=== PATIENT | female | born 1940 | race Caucasian/White ===

== ENCOUNTER 2024-10-04 20:16 | Observation (INO) ==
[2024-10-04 21:32] LABS: Basophils # (auto) 0.03 K/uL (0.00-0.20); Basophils % (auto) 0.8 %; Eosinophils # (auto) 0.38 K/uL (0.00-0.50); Eosinophils % (auto) 10.1 %; Hematocrit (blood only) 41.3 % (37.0-47.0); Hemoglobin 14.8 g/dl (12.0-16.0); Immature Granulocytes # (auto) 0.01 K/uL (0.01-0.20); Immature Granulocytes % (auto) 0.3 %; Lymphocytes # (auto) 1.04 K/uL (1.20-3.40); Lymphocytes % (auto) 27.6 %; Mean Corpuscular Hemoglobin 31.4 pg (25.0-34.0); Mean Corpuscular Hgb Conc 35.8 g/dL (32.0-36.0); Mean Corpuscular Volume 87.7 fL (80.0-100.0); Mean Platelet Volume 9.9 fL (9.4-12.4); Monocytes # (auto) 0.43 K/uL (0.11-0.59); Monocytes % (auto) 11.4 %; Neutrophils # (auto) 1.88 K/uL (1.40-6.50); Neutrophils % (auto) 49.8 %; Platelet Count 198 K/uL (130-400); RDW Coefficient of Variation 11.2 % (11.5-14.5); RDW Standard Deviation 36.2 fL (36.4-46.3); Red Blood Count 4.71 M/uL (4.20-5.40); White Blood Count 3.77 K/ul (4.8-10.8)
[2024-10-04 21:40] LABS: Albumin Globulin Ratio 1.2 (0.9-2); Albumin Level 3.8 gm/dl (3.4-5.0); Bilirubin,Total 0.5 mg/dl (0.2-1.0); Calcium 8.4 mg/dl (8.6-10.3); Globulin 3.1 gm/dl (2.5-4.0); Potassium 3.7 mmol/L (3.5-5.1); Total Protein 6.9 gm/dl (6.0-8.3)
[2024-10-04 21:45] LABS: Troponin I High Sensitivity 18.9 pg/ml (0-14)
[2024-10-04 21:52] LABS: Partial Thromboplastin Time 28 Seconds (21-31); Prothrombin Time 10.8 Seconds (9.0-12.0)
--- NOTE | 2024-10-04 22:15 | Emergency Department Note ---
Impression & Plan Influenza A (H1N1), Febrile illness, acute, Acute hyponatremia ED Provider Note NAME: BHAVIK MULLINS AGE: 83 SEX: Female INFORMANT: Patient ED PROVIDER(S): Enrike Kellogg MD CHIEF COMPLAINT: Shortness of breath and flulike symptoms PLAN: Disposition: Admission Outpatient prescription management: none Referral: None MEDICAL DECISION MAKING: Patient presented because of flulike symptoms. Testing was performed. No pneumothorax or pneumonia seen. She was congested and treated with a DuoNeb. Patient was also given Tylenol due to her complaints of aches. Laboratory testing did reveal mild leukopenia. Patient also had a borderline troponin and was hyponatremic. Patient appeared clinically dry and was started on low-dose fluids. She was also given Tamiflu. Further evaluation and management in the hospital was deemed appropriate. Consultation was made with Dr. Girard of the [facility] service. Patient was evaluated in the ER for further management. Care/management discussed with: operations manager station Level of care consideration(s): After review of the information above and other included data, I feel the patient requires escalation of care to admission Triage Nursing notes: reviewed and agree them. Vital Signs: reviewed and remarkable for no significant abnormalities Additional History obtained from: Patient's family regarding this current illness history. Chronic Medical/Social Conditions affecting care: Hypertension Prior/ Outside/ External records reviewed: none Differential Diagnosis: Reactive airway disease, pneumonia, pneumothorax, COPD, CHF, infections, cardiac ischemia, pulmonary embolism, musculoskeletal, gastrointestinal, as well as other pathologies. Viral syndrome, Diagnostics, independently interpreted by me: ECG: Twelve-lead ECG reveals a normal sinus rhythm at 68 bpm. Septal Q wave. No ST elevation or depression. Cardiac Monitoring: Cardiac monitoring ordered by me: The patient was placed on continuous cardiac monitoring and observed. It revealed a normal sinus rhythm at beats per minute without ectopy or evidence of dysrhythmia. Medical decision rules: none Imaging studies: Chest x-ray. Findings: A chest x-ray was performed and revealed no pneumothorax, effusion, infiltrate, pulmonary edema, free air under the diaphragm, or wide mediastinum. Impression: No acute disease. HPI: 83 year old Female arrives for evaluation of flu like symptoms. This started 1-2 weeks ago and is worsening. The patient also notes the following associated symptoms, weakness, malaise, nausea, vomiting, fatigue, urinary frequency. The patient has found no relieving factors. Current pain is rated as 5/10. Pt denies LOC, headache, visual changes, neck pain, chest pain, breathing difficulties, abdominal pain, back pain, melena, hematochezia, numbness, lymphadenopathy, rash, or other complaints. PAST MEDICAL HISTORY: See Below, HTN PAST SURGICAL HISTORY: See Below, SOCIAL HISTORY: See Below, non-smoker HOME MEDICATIONS: See Below ALLERGIES: See Below VITALS: See Below PHYSICAL EXAMINATION: GENERAL: Awake, alert, ill-appearing, in no distress HENT: Normocephalic, atraumatic. Oropharynx unremarkable. EYES: Normal conjunctiva. Sclera non-icteric. NECK: Inspection normal. Non-tender. Supple. No nuchal rigidity. FROM. No masses. RESPIRATORY: Clear to auscultation. No wheezes. No rales. Normal respiratory effort. CARDIAC: Normal rate. Normal rhythm. No murmurs. No rubs. Extremities warm and well perfused. Pulses equal. No JVD. GI: Soft, non-distended. No tenderness to palpation. No rebound or guarding. No masses. RECTAL: Deferred. MUSCULOSKELETAL: Atraumatic. Chest examination reveals no tenderness. The back is symmetrical on inspection without obvious abnormality. There is no CVA tenderness to palpation. No joint edema. LOWER EXTREMITIES: Calves are equal size bilaterally and non-tender. No edema. No discoloration. NEURO: Normal sensorium. No sensory or motor deficits noted. SKIN: No rash or jaundice noted. PROCEDURES: none CRITICAL CARE: none OBSERVATION NOTE: none Past Med/Surg History Problem List (Updated 10/05/24 @ 01:27 by Enrike Kellogg MD) Febrile illness, acute (Acute) Influenza A (H1N1) (Acute) Influenza A Acute hyponatremia (Acute) HTN (hypertension) (Acute) Medical History Overactive bladder Hx of lymphoma dx 2010, bx of lump on shoulder, hx "did detox diet to clear my system, no other treatment" History of hypertension recently put on medication Heart murmur History of cellulitis bilateral lower legs, reason for current abx; seen in [place] ER 02/2024 and at primary care 04/04/24 Surgical History Hx of right cataract extraction Hx of colonoscopy Family History Father Myocardial infarction Sister Ovarian cancer Mother Hypertension Denies family history of Prostate cancer Breast cancer Colorectal cancer Social History Smoking Status: Never smoker Second Hand Exposure: No; Do You Dip or Chew Tobacco: No; Hx Alcohol Use: Yes (years ago) Hx Substance Use: No Preferred Language: Tristanian Communication Ability: Effective Visual Impairment: No Limitations Hearing Ability: Normal Fire Protection Inspector Required: No Beliefs That Will Affect Care: None marital status: Current Living Situation: Family current occupational status: retired Feels Safe at Home: Yes Childhood Exposure to Second-Hand Smoke: No Diet: vegetarian Dental Care, Regularly: Yes Physical Activity Frequency: 3-4 Times per Week Seatbelt Use: sometimes Sunscreen Use: No Assistive Devices: None Allergies Allergies Allergy/AdvReac Type Severity Reaction Status Date / Time No Known Allergies Allergy Verified 10/02/24 17:08 Home Meds Home Medications Medication Instructions Recorded Confirmed losartan 25 mg tablet 25 mg PO QAM 10/02/24 10/04/24 Previous Rx's Medication Instructions Recorded azithromycin 250 mg tablet See Rx Instructions PO .COMPLEX #6 10/02/24 tabs Results & Data (ED) Vital Signs Vital Signs - 24 hr 10/04/24 20:20 10/04/24 21:38 10/04/24 21:38 Temperature 36.6 C 36.7 C Temperature Source Temporal Artery Scan Oral Pulse Rate 68 Pulse Rate [Apical] 59 L Pulse Rhythm Pulse Rhythm [Apical] Regular Pulse Strength [Apical] Normal Respiratory Rate 16 26 H Respiratory Effort / Characteristics Non-Labored Spontaneous Respiratory Depth Normal Respiratory Pattern Regular Blood Pressure 157/82 H Blood Pressure [Right Arm] 184/87 H Blood Pressure Mean 107 Blood Pressure Mean [Right Arm] 119 Blood Pressure Position [Right Arm] Lying Pulse Oximetry 96 96 Oxygen Delivery Method Room Air Room Air Room Air Sepsis Recent Fever Within 48 Hours No Sepsis New/Unexplained Change in Mental Status No Sepsis Action Taken by Nursing No Action Required 10/04/24 21:38 10/04/24 22:18 10/04/24 23:00 Temperature Temperature Source Pulse Rate 59 L 62 Pulse Rate [Apical] 67 Pulse Rhythm Regular Pulse Rhythm [Apical] Pulse Strength [Apical] Respiratory Rate 24 18 Respiratory Effort / Characteristics Non-Labored Spontaneous Respiratory Depth Normal Respiratory Pattern Regular Blood Pressure Blood Pressure [Right Arm] 146/84 H Blood Pressure Mean Blood Pressure Mean [Right Arm] 104 Blood Pressure Position [Right Arm] Pulse Oximetry 97 94 Oxygen Delivery Method Room Air Room Air Sepsis Recent Fever Within 48 Hours Sepsis New/Unexplained Change in Mental Status Sepsis Action Taken by Nursing Laboratory Data 10/04/24 21:03 10/04/24 21:03 Lab Results 10/04/24 10/04/24 10/04/24 Range/Units 21:03 22:19 22:23 WBC 3.77 L (4.8-10.8) K/ul RBC 4.71 (4.20-5.40) M/uL Hgb 14.8 (12.0-16.0) g/dl Hct 41.3 (37.0-47.0) % MCV 87.7 (80.0-100.0) fL MCH 31.4 (25.0-34.0) pg MCHC 35.8 (32.0-36.0) g/dL RDW Std Deviation 36.2 L (36.4-46.3) fL RDW Coeff of Brien 11.2 L (11.5-14.5) % Plt Count 198 (130-400) K/uL MPV 9.9 (9.4-12.4) fL Immature Gran % (Auto) 0.3 % Neut % (Auto) 49.8 % Lymph % (Auto) 27.6 % [place] % (Auto) 11.4 % Eos % (Auto) 10.1 % Baso % (Auto) 0.8 % Neut # (Auto) 1.88 (1.40-6.50) K/uL Lymph # (Auto) 1.04 L (1.20-3.40) K/uL [place] # (Auto) 0.43 (0.11-0.59) K/uL Eos # (Auto) 0.38 (0.00-0.50) K/uL Baso # (Auto) 0.03 (0.00-0.20) K/uL Immature Gran # (Auto) 0.01 (0.01-0.20) K/uL PT 10.8 (9.0-12.0) Seconds INR 1.0 (0.9-1.1) APTT 28 (21-31) Seconds PTT Ratio 1.0 Sodium 125 L (136-145) mmol/L Potassium 3.7 (3.5-5.1) mmol/L Chloride 92 L (98-107) mmol/L Carbon Dioxide 25 (21-32) mmol/L Anion Gap 8 (3-11) BUN 17 (6-23) mg/dl Creatinine 0.68 (0.6-1.2) mg/dl Est Cr Clr Drug Dosing 61.0 ml/min eGFR 87.44 BUN/Creatinine Ratio 25.0 H (10-20) Glucose 100 H (70-99(Fasting)) mg/dl Calcium 8.4 L (8.6-10.3) mg/dl Magnesium 1.7 (1.7-2.4) mg/dl Total Bilirubin 0.5 (0.2-1.0) mg/dl AST 51 H (13-39) U/L ALT 26 (7-52) U/L Alkaline Phosphatase 68 (34-104) U/L Troponin I High Sens 18.9 H (0-14) pg/ml B-Natriuretic Peptide 85 (0-100) pg/ml Total Protein 6.9 (6.0-8.3) gm/dl Albumin 3.8 (3.4-5.0) gm/dl Globulin 3.1 (2.5-4.0) gm/dl Albumin/Globulin Ratio 1.2 (0.9-2) Nasal Influ A H1 2008 PCR DETECTED A (NotDetected) Adenovirus (PCR) Not Detected (NotDetected) B. pertussis DNA (PCR) Not Detected (NotDetected) B.parapertussis DNA PCR Not Detected (NotDetected) C. pneumoniae DNA (PCR) Not Detected (NotDetected) Coronavirus OC43 (PCR) Not Detected (NotDetected) Coronavirus HKU1 (PCR) Not Detected (NotDetected) Coronavirus 229E (PCR) Not Detected (NotDetected) SARS-CoV-2 (PCR) Not Detected (NotDetected) Coronavirus NL63 (PCR) Not Detected (NotDetected) Human Metapneumovir PCR Not Detected (NotDetected) Influenza Type B (PCR) Not Detected (NotDetected) M. pneumoniae (PCR) Not Detected (NotDetected) Parainfluenza 1 (PCR) Not Detected (NotDetected) Parainfluenza 2 (PCR) Not Detected (NotDetected) Parainfluenza 3 (PCR) Not Detected (NotDetected) Parainfluenza 4 (PCR) Not Detected (NotDetected) RSV (PCR) Not Detected (NotDetected) Entero/Rhino (PCR) Not Detected (NotDetected) Administered Medications Sodium Chloride (Nss) 1,000 mls @ 80 mls/hr IV .[id number] DASHA Stop: 10/05/24 22:29 Last Admin: 10/04/24 22:38 Dose: 80 mls/hr Documented By: LUCIANO Discontinued Medications Acetaminophen (Acetaminophen 500 Mg Tab) 1,000 mg PO NOW STA Stop: 10/04/24 22:24 Last Admin: 10/04/24 22:37 Dose: 1,000 mg Documented By: LUCIANO Albuterol (Albut/Ipratrop 3mg/0.5mg Neb 3 Ml Vial) 3 ml NEB NOW STA; Protocol Stop: 10/04/24 22:24 Last Admin: 10/04/24 22:41 Dose: 3 ml Documented By: LUCIANO Oseltamivir Phosphate (Oseltamivir Phosphate 75 Mg Cap) 75 mg PO NOW STA; Protocol Stop: 10/04/24 23:22 Last Admin: 10/04/24 23:47 Dose: 75 mg Documented By: MATEO Imaging Data Radiologist's Impression: Chest X-Ray 10/04/24 20:26 Exam(s): XR CXR 1 VIEW EXAM: XR Chest, 1 View CLINICAL HISTORY: Chest pain, nonspecific. TECHNIQUE: Frontal view of the chest. COMPARISON: Portable chest single view 03/24/2024 FINDINGS: Lungs: Minimal linear changes in the left infrahilar region in the right lung base. No focal airspace consolidation. The pulmonary vasculature is unremarkable. Pleural space: Unremarkable. No pneumothorax. No large pleural effusion. Heart: Unremarkable. No cardiomegaly. Mediastinum: The mediastinal contours are stable. The trachea is midline. Bones/joints: Unremarkable. No acute fracture. Vasculature: Similar tortuosity of the descending aorta. IMPRESSION: Minimal presumed atelectatic linear changes in the left infrahilar region in the right lung base. No focal airspace consolidation. No pleural effusion or pneumothorax. Electronically signed by: Joao Birch MD 10/04/24 22:39 PM Discharge Plan Visit Data Chief Complaint: Shortness of Breath/Dyspnea Stated Complaint: COUGH, WHEEZING, WHOLE BODY ACHE, SOB ED Provider: Enrike Kellogg Discharge Problem: Influenza A (H1N1), Febrile illness, acute, Acute hyponatremia Discharge Instructions Interventions: ED Discharge Assessment Last Done: 10/05/24 00:33 Forms Stand Alone Forms: My [facility] [address] Prescriptions Prescriptions: No Action losartan 25 mg tablet 25 mg PO QAM azithromycin 250 mg tablet See Rx Instructions PO .COMPLEX Qty: 6 0RF Rx Instructions: For 250 mg dose pack: take 500 mg today (day 1), then 250 mg for 4 days (days 2-5) PO Referrals Referrals: PCP,NO [Primary Care Provider] -
[2024-10-04 22:16] LABS: Magnesium 1.7 mg/dl (1.7-2.4)
[2024-10-04] MEDS: ACETAMINOPHEN 500 MG TAB PO STA (22:37)
[2024-10-04] MEDS: SODIUM CHLORIDE 0.9% 1,000 ML IV SCH (22:38)
--- NOTE | 2024-10-04 22:40 | XRay Report ---
Exam(s): XR CXR 1 VIEW EXAM: XR Chest, 1 View CLINICAL HISTORY: Chest pain, nonspecific. TECHNIQUE: Frontal view of the chest. COMPARISON: Portable chest single view 03/24/2024 FINDINGS: Lungs: Minimal linear changes in the left infrahilar region in the right lung base. No focal airspace consolidation. The pulmonary vasculature is unremarkable. Pleural space: Unremarkable. No pneumothorax. No large pleural effusion. Heart: Unremarkable. No cardiomegaly. Mediastinum: The mediastinal contours are stable. The trachea is midline. Bones/joints: Unremarkable. No acute fracture. Vasculature: Similar tortuosity of the descending aorta. IMPRESSION: Minimal presumed atelectatic linear changes in the left infrahilar region in the right lung base. No focal airspace consolidation. No pleural effusion or pneumothorax. Electronically signed by: Joao Birch MD 10/04/24 22:39 PM
[2024-10-04] MEDS: ALBUT/IPRATROP 3MG/0.5MG NEB 3 ML VIAL NEB STA (22:41)
[2024-10-04 23:18] LABS: Adenovirus PCR Not Detected (NotDetected); Bordetella parapertussis PCR Not Detected (NotDetected); Bordetella pertussis PCR Not Detected (NotDetected); Chlamydia pneumoniae PCR Not Detected (NotDetected); Coronavirus 229E PCR Not Detected (NotDetected); Coronavirus CoV-2 (COVID19)PCR Not Detected (NotDetected); Coronavirus HKU1 PCR Not Detected (NotDetected); Coronavirus NL63 PCR Not Detected (NotDetected); Coronavirus OC43PCR Not Detected (NotDetected); Human Metapneumovirus PCR Not Detected (NotDetected); Influenza A (H1 2009) PCR DETECTED (NotDetected); Influenza B PCR Not Detected (NotDetected); Mycoplasma pneumoniae PCR Not Detected (NotDetected); Parainfluenza Virus 1 PCR Not Detected (NotDetected); Parainfluenza Virus 2 PCR Not Detected (NotDetected); Parainfluenza Virus 3 PCR Not Detected (NotDetected); Parainfluenza Virus 4 PCR Not Detected (NotDetected); Respiratory Syncytial VirusPCR Not Detected (NotDetected); Rhinovirus/Enterovirus PCR Not Detected (NotDetected)
[2024-10-04] MEDS: OSELTAMIVIR PHOSPHATE 75 MG CAP PO STA (23:47)
--- NOTE | 2024-10-05 00:06 | History & Physical Report ---
Date of Service October 04, 2024 Assessment & Plan (1) Influenza A: Plan: 83-year-old female with history of hypertension presenting with several weeks of cough, 3 days of fever and significant generalized weakness. Patient found to be positive for influenza A infection. In the ER she is afebrile, hemodynamically stable with adequate oxygenation on room air. Chest x-ray with no obvious infiltrates. Observation to medical Maintain isolation precautions Tylenol as needed for pain or fever Mucinex 600 mg p.o. twice daily for expectorant Albuterol as needed for wheeze or shortness of breath Oxygen as needed to maintain saturations greater than 92% Patient wishes to hold off on treatment with Tamiflu at this time (2) Acute hyponatremia: Plan: Sodium = 125. Patient with baseline mild hyponatremia with prior sodium = 134. Possibly contributing to patient's generalized weakness. Likely hypovolemic. Patient does appear clinically dry on exam. She has normal saline presently running at 80 mL/h Will check urine and serum osmolality Continue normal saline at 80 mL/h x 2 L in total Repeat chemistry in the morning (3) HTN (hypertension): Plan: Chronic. Hypertensive on arrival, blood pressure now improved. Presently 146/84. Patient was recently started on losartan. Continue losartan 25 mL p.o. every morning Continue to monitor blood pressure Plan F/E/Nnormal saline at 80 mL/h x 2 L total, magnesium is low normal will replete with 2 g IV, regular diet as tolerated with aspiration precautions Prophylaxislow risk for DVT. Encourage ambulation as tolerated Cod[place] per discussion with patient Disposition Observation to medica History of Present Illness Chief Complaint: Generalized weakness Primary Care Provider: NO PCP Elizabeth Philippe is a pleasant 83yo female with histoyr of Hypertension presenting with influenza A infection, generalized weakness and hyponatremia Patient reports several weeks of cough, initially productive of mucus. Also positional wheeze when she lays down. She was seen at urgent care on 10/02/2024 and was given a prescription for azithromycin which she has been taking. She has had intermittent fever. Last = 101.7 yesterday. Son also notes that her oxygen saturation was low yesterday on a finger monitor at 89%. Over the last 2 days she has had severe generalized weakness. Difficulty getting up and ambulating. She has had poor appetite and decreased oral intake. Denies chest pain, palpitations, abdominal pain, diarrhea. She did have 1 episode of nonbloody/nonbilious vomiting ER patient afebrile, hypertensive upon arrival blood pressure now improved. Adequate oxygenation on room air ER course: Tylenol Albuterol neb saline at 80 mL/h ongoing Tamiflu 75 mg ordered Allergies Allergy/AdvReac Type Severity Reaction Status Date / Time No Known Allergies Allergy Verified 10/02/24 17:08 Home Medications Medication Instructions Recorded Confirmed Type azithromycin 250 mg tablet See Rx Instructions PO .COMPLEX #6 10/02/24 10/04/24 Rx tabs losartan 25 mg tablet 25 mg PO QAM 10/02/24 10/04/24 History Past Med/Surg History Problem List (Updated 10/05/24 @ 00:02 by Cecilia Girard DO) Influenza A Acute hyponatremia (Acute) HTN (hypertension) (Acute) Medical History Overactive bladder Hx of lymphoma dx 2010, bx of lump on shoulder, hx "did detox diet to clear my system, no other treatment" History of hypertension recently put on medication Heart murmur History of cellulitis bilateral lower legs, reason for current abx; seen in [place] ER 02/2024 and at primary care 04/04/24 Surgical History Hx of right cataract extraction Hx of colonoscopy Family History Father Myocardial infarction Sister Ovarian cancer Mother Hypertension Denies family history of Prostate cancer Breast cancer Colorectal cancer Social History Smoking Status: Never smoker Second Hand Exposure: No; Do You Dip or Chew Tobacco: No; Hx Alcohol Use: Yes (years ago) Hx Substance Use: No Preferred Language: Amharic Communication Ability: Effective Visual Impairment: No Limitations Hearing Ability: Normal Merchandise Appraiser Required: No Beliefs That Will Affect Care: None marital status: Current Living Situation: Family current occupational status: retired Feels Safe at Home: Yes Childhood Exposure to Second-Hand Smoke: No Diet: vegetarian Dental Care, Regularly: Yes Physical Activity Frequency: 3-4 Times per Week Seatbelt Use: sometimes Sunscreen Use: No Assistive Devices: None Review of Systems Review of Systems: All systems reviewed & are unremarkable except as noted in HPI & below Physical Exam Physical Exam: General: patient resting comfortably, NAD, non-toxic in appearance, AA&O x 4 Skin: warm, dry, intact, no rashes or lesions HEENT: NC/AT, PERRL, EOMI, anicteric sclera, conjunctiva without injection, external ear normal to inspection and nontender, nares patent, dry mucus membranes, dentition intact, no oropharyngeal lesions, neck supple, trachea midline, no LAD, no thyromegaly, no JVD Heart: +S1/S2, regular with ectopy, no m/r/g Lungs: equal air entry bilaterally, coarse rhonchi appreciated in anterior lung zheng, no rales or wheezing Abd: +BS, soft, NT/ND, no masses/organomegaly/ascites Ext: warm, 2+ pulses in UE/LE bilaterally, no clubbing/cyanosis or edema Neuro: nonfocal, patient AA&O x 4, speech intact, no facial droop, moving all extremities on command with equal strength 5/5 Results & Data Results & Data Vital Signs (Past 12 Hours) Vital Signs Temp Pulse Pulse Resp BP BP Pulse Ox 10/04/24 23:00 67 18 146/84 H 94 10/04/24 22:18 62 10/04/24 21:38 59 L 24 97 10/04/24 21:38 36.7 C 59 L 26 H 184/87 H 96 10/04/24 21:38 10/04/24 20:20 36.6 C 68 16 157/82 H 96 O2 Del Method 10/04/24 23:00 Room Air 10/04/24 22:18 10/04/24 21:38 Room Air 10/04/24 21:38 Room Air 10/04/24 21:38 Room Air 10/04/24 20:20 Room Air Laboratory Results Laboratory Results WBC 3.77 K/ul (4.8-10.8) L 10/04/24 21:03 RBC 4.71 M/uL (4.20-5.40) 10/04/24 21:03 Hgb 14.8 g/dl (12.0-16.0) 10/04/24 21:03 Hct 41.3 % (37.0-47.0) 10/04/24 21:03 MCV 87.7 fL (80.0-100.0) 10/04/24 21: MCH 31.4 pg (25.0-34.0) 10/04/24 21: MCHC 35.8 g/dL (32.0-36.0) 10/04/24 21: RDW Std Deviation 36.2 fL (36.4-46.3) L 10/04/24: RDW Coeff of Brien 11.2 % (11.5-14.5) L 10/04/24 21: Plt Count 198 K/uL (130-400) 10/04/24 21: MPV 9.9 fL (9.4-12.4) 10/04/24 21: Immature Gran % (Auto) 0.3 % 10/04/24 21: Neut % (Auto) 49.8 % 10/04/24 21: Lymph % (Auto) 27.6 % 10/04/24 21:03 [place] % (Auto) 11.4 % 10/04/24 21:03 Eos % (Auto) 10.1 % 10/04/24 21:03 Baso % (Auto) 0.8 % 10/04/24 21: Neut # (Auto) 1.88 K/uL (1.40-6.50) 10/04/24 21:03 Lymph # (Auto) 1.04 K/uL (1.20-3.40) L 10/04/24 21:03 [place] # (Auto) 0.43 K/uL (0.11-0.59) 10/04/24 21: Eos # (Auto) 0.38 K/uL (0.00-0.50) 10/04/24 21: Baso # (Auto) 0.03 K/uL (0.00-0.20) 10/04/24 21: Immature Gran # (Auto) 0.01 K/uL (0.01-0.20) 10/04/24 21: PT 10.8 Seconds (9.0-12.0) 10/04/24 21: INR 1.0 (0.9-1.1) 10/04/24 21: APTT 28 Seconds (21-31) 01/07/25 21:03 PTT Ratio 1.0 10/04/24 21:03 Sodium 125 mmol/L (136-145) L 10/04/24 21:03 Potassium 3.7 mmol/L (3.5-5.1) 10/04/24 21:03 Chloride 92 mmol/L (98-107) L 10/04/24 21:03 Carbon Dioxide 25 mmol/L (21-32) 10/04/24 21:03 Anion Gap 8 (3-11) 10/04/24 21:03 BUN 17 mg/dl (6-23) 10/04/24 21:03 Creatinine 0.68 mg/dl (0.6-1.2) 10/04/24 21:03 Est Cr Clr Drug Dosing 61.0 ml/min 10/04/24 21:03 eGFR 87.44 10/04/24 21:03 BUN/Creatinine Ratio 25.0 (10-20) H 10/04/24 21:03 Glucose 100 mg/dl (70-99(Fasting)) H 10/04/24 21:03 Calcium 8.4 mg/dl (8.6-10.3) L 10/04/24 21:03 Magnesium 1.7 mg/dl (1.7-2.4) 10/04/24 21:03 Total Bilirubin 0.5 mg/dl (0.2-1.0) 10/04/24 21:03 AST 51 U/L (13-39) H 10/04/24 21:03 ALT 26 U/L (7-52) 10/04/24 21:03 Alkaline Phosphatase 68 U/L (34-104) 10/04/24 21:03 Troponin I High Sens 18.9 pg/ml (0-14) H 10/04/24 21:03 B-Natriuretic Peptide 85 pg/ml (0-100) 10/04/24 22:19 Total Protein 6.9 gm/dl (6.0-8.3) 10/04/24 21:03 Albumin 3.8 gm/dl (3.4-5.0) 10/04/24 21:03 Globulin 3.1 gm/dl (2.5-4.0) 10/04/24 21:03 Albumin/Globulin Ratio 1.2 (0.9-2) 10/04/24 21:03 Nasal Influ A H1 2009 PCR DETECTED (NotDetected) A 10/04/24 22:23 Adenovirus (PCR) Not Detected (NotDetected) 10/04/24 22:23 B. pertussis DNA (PCR) Not Detected (NotDetected) 10/04/24 22:23 B.parapertussis DNA PCR Not Detected (NotDetected) 10/04/24 22:23 C. pneumoniae DNA (PCR) Not Detected (NotDetected) 10/04/24 22:23 Coronavirus OC43 (PCR) Not Detected (NotDetected) 10/04/24 22:23 Coronavirus HKU1 (PCR) Not Detected (NotDetected) 10/04/24 22:23 Coronavirus 229E (PCR) Not Detected (NotDetected) 10/04/24 22:23 SARS-CoV-2 (PCR) Not Detected (NotDetected) 10/04/24 22:23 Coronavirus NL63 (PCR) Not Detected (NotDetected) 10/04/24 22:23 Human Metapneumovir PCR Not Detected (NotDetected) 10/04/24 22:23 Influenza Type B (PCR) Not Detected (NotDetected) 10/04/24 22:23 M. pneumoniae (PCR) Not Detected (NotDetected) 10/04/24 22:23 Parainfluenza 1 (PCR) Not Detected (NotDetected) 10/04/24 22:23 Parainfluenza 2 (PCR) Not Detected (NotDetected) 10/04/24 22:23 Parainfluenza 3 (PCR) Not Detected (NotDetected) 10/04/24 22:23 Parainfluenza 4 (PCR) Not Detected (NotDetected) 10/04/24 22:23 RSV (PCR) Not Detected (NotDetected) 10/04/24 22:23 Entero/Rhino (PCR) Not Detected (NotDetected) 10/04/24 22:23 Impressions Chest X-Ray 10/04/24 20:26 Exam(s): XR CXR 1 VIEW EXAM: XR Chest, 1 View CLINICAL HISTORY: Chest pain, nonspecific. TECHNIQUE: Frontal view of the chest. COMPARISON: Portable chest single view 03/24/2024 FINDINGS: Lungs: Minimal linear changes in the left infrahilar region in the right lung base. No focal airspace consolidation. The pulmonary vasculature is unremarkable. Pleural space: Unremarkable. No pneumothorax. No large pleural effusion. Heart: Unremarkable. No cardiomegaly. Mediastinum: The mediastinal contours are stable. The trachea is midline. Bones/joints: Unremarkable. No acute fracture. Vasculature: Similar tortuosity of the descending aorta. IMPRESSION: Minimal presumed atelectatic linear changes in the left infrahilar region in the right lung base. No focal airspace consolidation. No pleural effusion or pneumothorax. Electronically signed by: Joao Birch MD 10/04/24 22:39 PM ECG Additional Comments: EKG with NSR at 68bpm, normal axis, RZ=606, QRS=84, UQv=840, no acute ischemic c hanges PG Care Time/CCT Total # of Minutes Spent Total Time Spent with Patient: Total time spent is greater than 50% in coordination of care (as documented) at patient's floor/unit and/or counseling patient: Coding Level of Care Code 61526 INT INP/OBS CARE 2/55MIN Diagnoses Influenza A J10.1 Acute hyponatremia E87.1 Essential hypertension I10 Hypertension type: unspecified (3) HTN (hypertension) Hypertension type: unspecified Qualified Code(s): I10 - Essential (primary) hypertension
[2024-10-05] MEDS ORDERED: ALBUTEROL 0.5% NEB SOLN 2.5 MG/0.5 ML VIAL NEB PRN (01:37)
[2024-10-05] MEDS: SODIUM CHLORIDE 0.9% 1,000 ML IV SCH (01:55)
[2024-10-05] MEDS: BENZONATATE 100 MG CAPSULE PO PRN (02:03)
[2024-10-05] MEDS: ACETAMINOPHEN 325 MG TAB PO PRN (02:03)
[2024-10-05] MEDS: MAGNESIUM SULFATE / D5W 1 GM/100 ML BAG IV SCH (02:04)
[2024-10-05] MEDS ORDERED: HYDROcodone/HOMATROPINE SYRUP 5MG/1.5MG 5ML UDP PO PRN (05:04)
[2024-10-05] MEDS: COUGH DROP (SUGAR FREE) LOZ 24 LOZ/1 BOX BUCCAL ONE (05:29)
[2024-10-05] MEDS: ONDANSETRON INJ 2 MG/ML 2 ML VIAL IV PRN (07:48)
[2024-10-05 07:51] LABS: Calcium 7.9 mg/dl (8.6-10.3); Creatinine Clr Calc Pharmacy 66.3 ml/min; Potassium 3.7 mmol/L (3.5-5.1)
[2024-10-05] MEDS: guaiFENesin 600 MG TABCR PO SCH (08:03)
[2024-10-05] MEDS: LOSARTAN POTASSIUM 25 MG TAB PO SCH (08:03)
--- NOTE | 2024-10-05 09:47 | Hospitalist Progress Note ---
Date of Service October 05, 2024 Assessment & Plan (1) Influenza A: Plan: 83-year-old female with past medical history of hypertension and overactive bladder presented with cough and intermittent fever, fatigue, difficulty ambulating, decreased p.o. intake, and nausea x 1-2 weeks with 1 episode of vomiting at home. She went to urgent care on 10/02/2024 and was given a prescription for azithromycin at that time, but continued to worsen at home which is what brought her to the ED. On presentation she was found to be positive for influenza A infection, CXR with no obvious infiltrates, stable on room air. Patient wishes to defer treatment with Tamiflu. Maintain isolation precautions Tylenol as needed for pain or fever. Reported clamminess this morning but no documented fever Mucinex 600 mg p.o. twice daily for expectorant Albuterol as needed for wheeze or shortness of breath Oxygen as needed to maintain saturations >92% PT OT evals appreciated. Patient lives at home with her son and feels too weak to return home at this time (2) Acute hyponatremia: Plan: Appears the patient has mild hyponatremia baseline, with acute on chronic hyponatremia with [id number] on admission. Suspect due to hypovolemia in setting of decreased p.o. intake. Possibly contributing to patient's generalized weakness. NSS at 80 mL/h x 2 L with improvement in Na to 129 Serum osmolality low at 268 consistent with hypotonic hyponatremia Appears euvolemic at this time. Urine osmolality pending Repeat BMP in a.m. (3) HTN (hypertension): Plan: Chronic. Patient was recently started on losartan. Hypertensive on arrival, blood pressure now improved with most recent BP 118/69 Continue losartan 25 mL p.o. every morning Plan VTE PPx: Low risk for DVT. Encourage ambulation as tolerated CODE STATUS: Full code Dispo: Waiting for PT/OT evals to determine if patient can return home where she lives with her son or would benefit from short-term rehab placement Admission and Anticipated Discharge Date Admission Date: October 04, 2024 Subjective Patient seen and evaluated in bedside chair. She reports "last night was the worst experience of my life." She states this is due to being in the hospital and continuing to experience flulike symptoms. She reports ongoing weakness, nausea, and decreased appetite. She reports feeling clammy earlier this morning. She only had a few bites of her breakfast. She states that she went to urgent care on 10/02/2024 and was given a prescription for azithromycin, but continued to worsen at home despite this. She states she does not feel well enough or strong enough to return home. Physical Exam Physical Exam: General: No acute distress, nondiaphoretic, frail elderly female. Moist mucous membranes. Cardiac: Regular rate and rhythm without murmurs gallops or rubs. No peripheral edema. Pulm: Clear to auscultation bilaterally without wheezes, rales or rhonchi. No respiratory distress. 93% on room air. Abdominal: Soft, nontender, nondistended. Bowel sounds present. Neuro: A&O x3. No focal neurological deficits. Results & Data Results & Data Vital Signs (Past 12 Hours) Vital Signs Temp Pulse Pulse Pulse Resp BP Pulse Ox 10/05/24 08:11 97.9 F 63 18 118/69 93 10/05/24 02:08 10/05/24 01:39 98.2 F 62 16 144/77 H 94 10/04/24 23:00 67 18 146/84 H 94 10/04/24 22:18 62 O2 Del Method 10/05/24 08:11 Room Air 10/05/24 02:08 Room Air 10/05/24 01:39 Room Air 10/04/24 23:00 Room Air 10/04/24 22:18 PG Care Time/CCT Total # of Minutes Spent Total Time Spent with Patient: Total time spent is greater than 50% in coordination of care (as documented) at patient's floor/unit and/or counseling patient: Coding Level of Care Code 91611 SUB INP/OBS CARE 2/35MIN Diagnoses Influenza A J10.1 Acute hyponatremia E87.1 Essential hypertension I10 Hypertension type: unspecified (3) HTN (hypertension) Hypertension type: unspecified Qualified Code(s): I10 - Essential (primary) hypertension
[2024-10-06 06:06] LABS: Hematocrit (blood only) 39.9 % (37.0-47.0); Hemoglobin 13.7 g/dl (12.0-16.0); Mean Corpuscular Hemoglobin 30.9 pg (25.0-34.0); Mean Corpuscular Hgb Conc 34.3 g/dL (32.0-36.0); Mean Corpuscular Volume 89.9 fL (80.0-100.0); Mean Platelet Volume 9.9 fL (9.4-12.4); Platelet Count 189 K/uL (130-400); RDW Coefficient of Variation 11.6 % (11.5-14.5); RDW Standard Deviation 37.9 fL (36.4-46.3); Red Blood Count 4.44 M/uL (4.20-5.40); White Blood Count 4.27 K/ul (4.8-10.8)
[2024-10-06 06:21] LABS: BUN Creatinine Ratio 13.9 (10-20); Calcium 7.9 mg/dl (8.6-10.3); Creatinine Clr Calc Pharmacy 57.1 ml/min; Magnesium 1.9 mg/dl (1.7-2.4); Potassium 3.5 mmol/L (3.5-5.1)
--- NOTE | 2024-10-06 06:53 | Electrocardiogram Report ---
Test Reason : Blood Pressure : */* mmHG Vent. Rate : 68 BPM Atrial Rate : 68 BPM P-R Int : 164 ms QRS Dur : 84 ms QT Int : 416 ms P-R-T Axes : 52 15 51 degrees QTcB Int : 442 ms Normal sinus rhythm Septal infarct , age undetermined Abnormal ECG When compared with ECG of 11-May-2021 00:46, Premature atrial complexes are no longer Present Septal infarct is now Present Confirmed by Ricco Borrego ([id number]) on 10/06/2024 6:53:04 AM Referred By: REFERRED SELF Confirmed By: Ricco Borrego
[2024-10-06 07:27] VITALS: BP 153/81; PULSE 63; RESP 18; TEMP 98.2; O2SAT 96
--- NOTE | 2024-10-06 12:34 | Discharge Summary ---
Discharge Summary Date of Service October 06, 2024 Principal Dx & Hospital Course #1 = Principal Diagnosis (1) Influenza A: 83-year-old female with past medical history of hypertension and overactive bladder presented with cough and intermittent fever, fatigue, difficulty ambulating, decreased p.o. intake, and nausea x 1-2 weeks with 1 episode of vomiting at home. She went to urgent care on 10/02/2024 and was given a prescription for azithromycin at that time, but continued to worsen at home which is what brought her to the ED. On presentation she was found to be positive for influenza A infection, CXR with no obvious infiltrates, stable on room air. Patient wished to defer treatment with Tamiflu. Symptoms improved with supportive care continue: Tylenol as needed for pain or fever. Reported clamminess this morning but no documented fever Mucinex 600 mg p.o. twice daily for expectorant Albuterol as needed for wheeze or shortness of breath -weakness improved and moving around her room independently today (2) Acute hyponatremia: Appears the patient has mild hyponatremia baseline, with acute on chronic hyponatremia with Ot=856 on admission. Related to hypovolemia and low solute intake in setting of decreased p.o. intake. Possibly contributing to patient's generalized weakness. treated with IV NS with improvement in Na to 129 on 10/05 and 134 on 10/06 (3) HTN (hypertension): Chronic. Patient was recently started on losartan. Continue losartan 25 mL p.o. every morning Plan I updated her son by phone today Encouraged her to follow up in primary care Admission HPI Per Admitting Provider Elizabeth Philippe is a pleasant 83yo female with histoyr of Hypertension presenting with influenza A infection, generalized weakness and hyponatremia Patient reports several weeks of cough, initially productive of mucus. Also positional wheeze when she lays down. She was seen at urgent care on 10/02/2024 and was given a prescription for azithromycin which she has been taking. She has had intermittent fever. Last = 101.7 yesterday. Son also notes that her oxygen saturation was low yesterday on a finger monitor at 89%. Over the last 2 days she has had severe generalized weakness. Difficulty getting up and ambulating. She has had poor appetite and decreased oral intake. Denies chest pain, palpitations, abdominal pain, diarrhea. She did have 1 episode of nonbloody/nonbilious vomiting ER patient afebrile, hypertensive upon arrival blood pressure now improved. Adequate oxygenation on room air ER course: Tylenol Albuterol neb saline at 80 mL/h ongoing Tamiflu 75 mg ordered Discharge Exam PHYSICAL EXAMINATION Last 24h vital signs reviewed, see documentation in flowsheet General: comfortable appearing, no distress, has been up in the chair and I saw her get up and walked back to sit on the edge of the bed HEENT: Normocephalic, atraumatic, pupils round and equal, sclerae anicteric, no conjunctival injection, moist mucus membranes Lungs: Normal respiratory effort. Clear to auscultation bilaterally. No RRW Heart: Regular rate and rhythm, no murmurs. No JVD Abdomen: Soft, nondistended. Extremities: Warm, dry, well-perfused. No extremity edema. Neuro: Alert and oriented x 4, face symmetric, moves 4 extremities well Psych: Normal affect and behavior Discharge Plan Discharge Items Patient Disposition: Home - Self-Care Reason For Visit: INFLUENZA A, WEAKNESS, HYPONATREMIA Discharge Diagnosis: Influenza A, hyponatremia Activity: Resume your previous activity Non-emergency contact: Primary Care Provider Call non-emergency contact if: you have any medication questions, your symptoms worsen and your temperature is above 101 Follow-up/Referrals: Tammy Malin PA-C [Primary Care Provider] - Laurie Tompkins DO [Physician] - 10/17/24 11:00 am (APPOINTMENT WITH BERNARDO TRAN PA-C) Diet: Regular Addtl Attending Provider Instructions: You were treated for influenza A and low blood sodium level (related to the influenza and some dehydration) You will probably still have a cough for a few weeks, but at this point should be generally improving day by day You don't have to finish the prescription for azithromycin because antibiotics don't work on influenza, which is a virus You can take mucinex (guaifenasin), which is available over the counter to help with cough and congestion Acetaminophen (tylenol) as directed is safest for aches, pains, and fever I prescribed an albuterol inhaler that you can use as needed for wheezing or shortness of breath It was a pleasure taking care of you in the hospital, Rosalinda Bains MD Pending Studies at Discharge: No Stand-Alone Forms: My [facility] Technical Machine, Smoking Cessation Medications and DC Order Prescriptions: New guaifenesin [Mucinex] 600 mg Tablet Extended Release 12hr 600 mg PO Q12 Qty: 0 0RF Rx Instructions: over the counter albuterol sulfate 90 mcg/actuation HFA aerosol inhaler 1 inh inhalation Q4H PRN (Reason: shortness of breath or wheezing) Qty: 6.7 0RF Continued losartan 25 mg tablet 25 mg PO QAM Discontinued azithromycin 250 mg tablet See Rx Instructions PO .COMPLEX Qty: 6 0RF Rx Instructions: For 250 mg dose pack: take 500 mg today (day 1), then 250 mg for 4 days (days 2-5) PO Discharge Orders: Discharge Order (Routine); Ordered 10/06/24 Ordered By: Rosalinda Bains Admission Data Admit Date/Time: 10/04/24 23:52 Attending Provider: Rosalinda Bains Admit Provider: Cecilia Girard Primary Care Provider: Tammy Malin Other Providers: Cecilia Girard Other Interventions: Discharge Summary Assessment (RN) Last Done: 10/06/24 12:23 Hospital Stay Data Consultations 10/04/24 23:30 ED Decision to Admit Stat 10/05/24 00:02 ED Decision to Admit Stat Pending Results Patient Have Any Pending Studies at Discharge: No Discharge Instructions Given to Patient (Per Discharging Provider) You were treated for influenza A and low blood sodium level (related to the influenza and some dehydration) You will probably still have a cough for a few weeks, but at this point should be generally improving day by day You don't have to finish the prescription for azithromycin because antibiotics don't work on influenza, which is a virus You can take mucinex (guaifenasin), which is available over the counter to help with cough and congestion Acetaminophen (tylenol) as directed is safest for aches, pains, and fever I prescribed an albuterol inhaler that you can use as needed for wheezing or shortness of breath It was a pleasure taking care of you in the hospital, Rosalinda Bains MD Total Time Total Time Spent Total Time Spent (In Minutes): <30 Coding Level of Care Code 69867 IN/OBS DISCH 30 MIN/LESS Diagnoses Influenza A J10.1 Acute hyponatremia E87.1 Essential hypertension I10 Hypertension type: unspecified
== END 2024-10-06 15:15 | disposition home or self-care (01) ==
LOC: ED 20:16 → 3E 20:16 → SUATTDRO 23:52 → 3E 10-05 00:33